=== PATIENT | female | born 1995 | race Two or more races ===

== ENCOUNTER 2018-06-09 18:53 | Emergency (ER) | payer SELFPAY ==
[2018-06-09] MEDS: NS 1,000 ML IV (20:51)
[2018-06-09] MEDS: diphenhydrAMINE INJ 50MG/ML VIAL (J1200) IV (20:51)
[2018-06-09] MEDS: KETOROLAC 30 MG/ML VIAL (J1885) IV (20:51)
[2018-06-09] MEDS: METOCLOPRAMIDE INJ 10MG/2ML VIAL (J2765) IV (20:51)
== END 2018-06-09 22:20 | disposition home or self-care (01) ==
LOC: M ED 18:53
DX: G43.909 Migraine, unspecified, not intractable, without status migrainosus (principal); I51.9 Heart disease, unspecified; Z88.0 Allergy status to penicillin
CPT/HCPCS: J1200